=== PATIENT | female | born 1995 | race Caucasian/White ===

== ENCOUNTER 2021-01-30 07:29 | Day surgery (SDC) | payer BC, OTHER ==
[~2021-01-30] VITALS: Ht 162.6 cm; Wt 65.8 kg
[2021-01-30 08:07] VITALS: BP 107/75; PULSE 90; TEMP 98
[2021-01-30] MEDS ORDERED: ALDACTONE 100M100 MG PO (08:14)
[2021-01-30] MEDS ORDERED: SINGULAIR 110 MG/TAB PO (08:16)
[2021-01-30] MEDS ORDERED: FLOVENT 44MCG I13 GM IH (08:17)
[2021-01-30] MEDS ORDERED: EPIDUO FORTE 0.45 GM TP (08:18)
[2021-01-30] MEDS ORDERED: MAG (08:22)
[2021-01-30] MEDS ORDERED: CALCIUM (08:22)
[2021-01-30] MEDS ORDERED: VITAMIND (08:22)
[2021-01-30] MEDS ORDERED: MELATONIN5 M1 SL (08:24)
[2021-01-30] MEDS ORDERED: ONE-A-DAY ESSE1 EACH PO (08:24)
[2021-01-30] MEDS ORDERED: VITAMIN C (08:26)
[2021-01-30] MEDS ORDERED: PEPCID 20MG TAB20 MG PO (08:27)
[2021-01-30] MEDS ORDERED: ZYRTEC 10MG10 MG PO (08:28)
[2021-01-30] MEDS ORDERED: FLONASEALLERGY NS (08:33)
[2021-01-30] MEDS ORDERED: MIRENA52 MG IY (08:33)
[2021-01-30 09:45] VITALS: BP 92/60; PULSE 72; TEMP 97
--- NOTE | 2021-01-30 09:45 | NUR ---
Pt to GI bay 5 via cart from ENDO. Pt drowsy, but awake. Pt ambulates to recliner with stand by assistance. Warm blanket given. Apple juice, water and pudding given per pt request. Will continue to monitor. Call light within reach.
[2021-01-30 10:00] VITALS: BP 104/92; PULSE 66
--- NOTE | 2021-01-30 10:00 | NUR ---
Pt continues to rest. Tolerating food and fluids without difficulties. Call light within reach.
[2021-01-30 10:15] VITALS: BP 103/75; PULSE 66
--- NOTE | 2021-01-30 10:15 | NUR ---
Pt wanting to get dressed. IV site discontinued with all parts intact. Pt up to dress. Awaiting post consultation from physician.
--- NOTE | 2021-01-30 10:50 | NUR ---
Dr Leach into see pt and consult with her. Discharge instructions reviewed. pt voices understanding.
--- NOTE | 2021-01-30 11:05 | NUR ---
Pt escorted to private car via wheel chair. Pt accompanied home by her friend Joe.
== END 2021-01-30 11:05 | disposition home or self-care (01) ==
LOC: SDCO 07:29
DX: D12.5 Benign neoplasm of sigmoid colon (principal); D64.9 Anemia, unspecified; K64.8 Other hemorrhoids; K62.89 Other specified diseases of anus and rectum; K29.50 Unspecified chronic gastritis without bleeding; Z88.2 Allergy status to sulfonamides; J45.909 Unspecified asthma, uncomplicated; K21.9 Gastro-esophageal reflux disease without esophagitis; Z79.899 Other long term (current) drug therapy
CPT/HCPCS: J2704; J7120

== ENCOUNTER 2021-05-13 12:56 | Emergency (ER) | payer OTHER, BC ==
[~2021-05-13] VITALS: Ht 162.6 cm; Wt 65.9 kg
[~2021-05-13 12:56] MED LIST: ALDACTONE 100M100 MG PO; CALCIUM; EPIDUO FORTE 0.45 GM TP; FLONASEALLERGY NS; FLOVENT 44MCG I13 GM IH; MAG; MELATONIN5 M1 SL; MIRENA52 MG IY; ONE-A-DAY ESSE1 EACH PO; PEPCID 20MG TAB20 MG PO; SINGULAIR 110 MG/TAB PO; VITAMIN C; VITAMIND; ZYRTEC 10MG10 MG PO
[2021-05-13 15:31] VITALS: BP 108/73; PULSE 74; TEMP 97.8
== END 2021-05-13 15:31 | disposition home or self-care (01) ==
LOC: COL.ER 12:56
DX: F07.81 Postconcussional syndrome (principal)
CPT/HCPCS: J1200; J1885

== ENCOUNTER 2023-11-17 04:19 | Inpatient (IN) | payer BC ==
[2023-11-16 21:15] VITALS: BP 144/70; PULSE 77
[~2023-11-17] VITALS: Ht 167.6 cm; Wt 81.8 kg
[2023-11-17] VITALS (56 sets, daily range): BP systolic 101–199; BP diastolic 55–90; PULSE 61–111; TEMP 98–98.8
[2023-11-17] MEDS ORDERED: LR 1,000 ML IV PRN ×2 (05:00→20:00)
--- NOTE | 2023-11-17 05:00 | NUR ---
0425: Pt arrives via wheelchair, accompanied by spouse and staff. Shown to room and instructed to change into gown. 0430: Pt placed on monitors, current complaint of ctx that started yesterday around 1500, irregular in frequency, but became stronger and more frequent around 0100 today. Pt also reports have nausea and vomiting at times with her ctx. hx obtained as well. Pt denies any LOF, VB and reports good movement. 0440: SVE 2/90/-2 at this time, bag of gallardo intact. Pt tolerated exam fair.
[2023-11-17] MEDS ORDERED: Ondansetron 4 MG/2 ML VIAL IV ONE (06:00)
--- NOTE | 2023-11-17 09:15 | NUR ---
UNABLE TO TRACE ACCURATE CTX DUE TO MATERNAL POSITION AND HABITUS. THIS RN AT BEDSIDE ADJUSTING TOCO.
[2023-11-17] MEDS ORDERED: ROPivacaine PF 0.2% 200 ML IV ONE (09:17)
[2023-11-17] MEDS ORDERED: LR 1,000 ML IV SCH (09:30)
[2023-11-17] MEDS ORDERED: LR & Oxytocin 500 ML IV SCH ×3 (09:30→11:45)
--- NOTE | 2023-11-17 09:45 | NUR ---
UNABLE TO TRACE EFM AND TOCO DUE TO MATERNAL POSITION AND HABITUS DURING EPIDURAL PROCEDURE. THIS RN AT BEDSIDE ATTEMPTING TO TRACE, PT VS STABLE.
--- NOTE | 2023-11-17 09:58 | NUR ---
[address] MIXER OPERATOR AT PT BEDSIDE, PT SITTING ON SIDE OF BED. NELSY DISCUSSING AND EDUCATING PT ON EPIDURAL PLACEMENT AND PROCEDURE, SPOUSE SUPPORTIVE AT BEDSIDE. EFM CAT 1, PT VS STABLE. 0956 TEST DOSE ADMINISTERED PER N[address] ROAD MIXER OPERATOR, PT TOLERATED WELL. PT VS STABLE, PT REPOSITIONED COMFORTABLE WEDGE LEFT, SPOUSE SUPPORTIVE AT BEDSIDE.
[2023-11-17] MEDS ORDERED: Ondansetron 4 MG/2 ML VIAL IV PRN ×2 (10:00→20:00)
[2023-11-17] MEDS ORDERED: diphenhydrAMINE 25 MG CAP PO PRN (10:00)
[2023-11-17] MEDS ORDERED: ePHEDrine 50 MG/10 ML VIAL IV PRN (10:00)
[2023-11-17] MEDS ORDERED: Naloxone 0.4 MG/ML VIAL IV PRN ×2 (10:00→20:00)
[2023-11-17] MEDS ORDERED: diphenhydrAMINE 50 MG/ML 1 ML VIAL IV PRN (10:00)
--- NOTE | 2023-11-17 10:00 | NUR ---
0955 SVE PER JORGE LUIS 5-6/90/-2, PT TOLERATED WELL, VS STABLE 0958 FHR PROLONGED DECEL BEGINS, DECEL LASTS 5 MIN, NOTIFIED. PT POSITION CHANGED, EPHEDRINE DOSE 2ML/10MG ADMINISTERED PER NELSY LARSEN. 1003 FHR BASELINE RECOVERED 120'S, CTX UNABLE TO TRACE DUE TO MATERNAL POSITION, PT VS STABLE. THIS RN AT BEDSIDE ATTEMPTING TO TRACE CTX.
[2023-11-17] MEDS ORDERED: ePHEDrine 50 MG/ML VIAL ONE (10:02)
[2023-11-17 10:49] LABS: BASO % 0.2 % (0.0-2.0); EOS % 0.1 % (0.0-4.0); GRAN # 7.7 K/mm3 (1.4-6.5); GRAN % 86.7 % (42.2-75.2); HEMOGLOBIN 11.1 g/dl (12.5-16.0); LYMPH # 0.9 K/mm3 (1.2-3.4); LYMPH % 10.4 % (20.0-51.0); MEAN CELL VOLUME 84 fl (80.0-100.0); MEAN CORPUSCULAR HEMOGLOBIN 27 pg (27-31); MEAN CORPUSCULAR HGB CONC 32 g/dl (33.0-37.0); MEAN PLATELET VOLUME 9.8 fl (7.4-10.4); MONO # 0.2 K/mm3 (0.1-0.6); MONO % 2.1 % (1.7-9.3); PLATELET COUNT 264 K/mm3 (130-400); RED BLOOD COUNT 4.13 M/mm3 (4.10-5.30); REDCELL DISTRIBUTION WIDTH-CV 13.4 % (11.5-14.5)
[2023-11-17 10:52] LABS: HEMATOCRIT 34.5 % (37.0-47.0)
--- NOTE | 2023-11-17 12:30 | NUR ---
1222 FHR BEGINS EARLY DECEL, SVE /-2 PER THIS RN. PT POSITION CHANGED, THIS RN CALLS FOR ASSISTANCE FROM THUY EVANS. FLUID BOLUS BEGUN. 1230 PITOCIN STOPPED DUE TO PROLONGED EARLY DECEL, PT POSITIONED HANDS AND KNEES. NOTIFIED. 1236 FHR RETURNS WNL 120'S, CTX Q 2-5MIN 90-120SEC. PT VS STABLE, SPOUSE SUPPORTIVE AT BEDSIDE. PT REPOSITIONED LEFT LATERAL WITH PEANUT BALL.
--- NOTE | 2023-11-17 14:55 | NUR ---
1446 FHR PROLONGED LATE DECEL BEGAN, THIS RN AT BEDSIDE CHANGING PT POSITION, FLUID BOLUS BEGUN. THIS RN ASKS FOR ASSISTANCE AND NOTIFIES 1450 PITOCIN STOPPED, PT REPOSITIONED UNTIL FHR RECOVERS ON LEFT LATERAL SIDE. PT VS STABLE 1454 FHR RECOVERED BASELINE 130'S WITH SOME RECURRENT LATES BUT NOT PROLONGED. 1512 FHR FULLY RECOVERED WITH NO LATES, NOTIFIED. PT VS STABLE, SPOUSE SUPPORTIVE AT BEDSIDE. FHR 130'S, GOOD ACCELS, NO DECELS, CTX 2-3MIN 70-90SEC, MODERATE VARIABILITY.
--- NOTE | 2023-11-17 16:30 | NUR ---
1625 FHR BEGIN PROLONGED LATE DECELERATION, THIS RN AT BEDSIDE CHANGING PT POSITION, FLUID BOLUS BEGUN, PITOCIN STOPPED, NOTIFIED. 1630 FHR RECOVERED 130'S. PT VS STABLE, CTX 2-5MIN 60-120SEC, NO ACCELS, INTERMITTENT VARIABLES. SPOUSE SUPPORTIVE AT BEDSIDE. AT BEDSIDE DISCUSSING PLAN OF CARE WITH PT AND SPOUSE IF FHR CONTINUES TO SHOW PROLONGED DECELERATIONS
--- NOTE | 2023-11-17 17:00 | NUR ---
1650 FHR BEGINS PROLONGED EARLY DECELERATION, PT SVE PER -/0. PT REPOSITIONED, PITOCIN STOPPED. THIS RN NOTIFIES CHARGE NURSE BRADFORD FOR ASSISTANCE AND AT BEDSIDE HELPING. 1702 FHR RECOVERED BASELINE 130'S, PT WEDGE RIGHT WITH RT LEG IN STIRRUP. PT DISCUSSED WITH RECHECKING FOR CERVICAL CHANGE IN 1 HOUR TO DECIDE PLAN OF CARE WITH DELIVERY.
--- NOTE | 2023-11-17 18:22 | NUR ---
This RN into room for bedside report. Pt pushing. Pitocin to 6mu to augment pushing. 183 FHT's to 90's with pushing. Pushing stopped. 1831 to L side with no change in FHT's x 1 min, to R side. pitocin to 4 mu. gradual return to base line 140's. time from onset to return to baseline 3.5 minutes. 1838 Continues RL, peanut ball placed. 1840 FHT's with late onset variable to 90's
--- NOTE | 2023-11-17 19:00 | NUR ---
Pushing attempted in RL. FHT's to 80's , spont back to baseline. Pushing attempt #2 in RL, FHT's to 60's after pushing stopped, prior to end of ctx. 190 FHT's with loss of tracing, trending upwords. 1904 to WL FHT's briefly tracing and audible in 60's. Attempt FSE , unsuccessful r/t large amount of caput. 1907 To LL. FHT's to 150's, then back to 70's with pushing, returns to baseline after 70 seconds. 1919 FHT's continue with late decelerations to 70's-90's with with pushing
--- NOTE | 2023-11-17 19:25 | NUR ---
Pushing stopped. FHT's with late decelrations. 1925 Dr Osborne notified. Pitocin gtt turned off. 193 Dr osborne into room SVE with no descent noted. Dr Osborne discusses findings and need for C/S. Questions invited and answered.
[2023-11-17] MEDS ORDERED: oxyCODONE 5 MG TAB PO PRN (20:00)
[2023-11-17] MEDS ORDERED: Measles/Mumps/Rubella Virus Vaccine Live w Diluent 0.5 ML VIAL SQ SCH (20:00)
[2023-11-17] MEDS ORDERED: Loratadine 10 MG TAB PO PRN (20:00)
[2023-11-17] MEDS ORDERED: Acetaminophen 500 MG TAB PO PRN (20:00)
[2023-11-17] MEDS ORDERED: Magnes Hydrox (MOM) 80 MG/ML 30 ML CUP PO PRN (20:00)
[2023-11-17] MEDS ORDERED: dexAMETHasone 10 MG/ML VIAL ONE (20:37)
[2023-11-17] MEDS ORDERED: Ketorolac 30 MG/ML VIAL ONE (20:37)
[2023-11-17] MEDS ORDERED: NS 10 ML IV ONE (20:37)
[2023-11-17] MEDS ORDERED: Lidocaine PF 2% (20 MG/ML) 5 ML VIAL ONE ×2 (20:37→20:43)
[2023-11-17] MEDS ORDERED: Ondansetron 4 MG/2 ML VIAL ONE (20:37)
[2023-11-17] MEDS ORDERED: traZODone 50 MG TAB PO PRN (21:00)
[2023-11-17] MEDS ORDERED: Chloroprocaine PF 3% (30 MG/ML) 20 ML VIAL ONE (21:23)
[2023-11-18] MEDS ORDERED: Azithromycin 500 MG in NS 250 ML IV ONE
[2023-11-18] MEDS ORDERED: Tranexamic Acid 1,000 MG in NS 100 ML IV ONE
[2023-11-18] MEDS ORDERED: Ibuprofen 800 MG TAB PO SCH (01:58)
[2023-11-18 05:15] VITALS: BP 98/60; PULSE 50; TEMP 98.2
[2023-11-18 07:33] VITALS: BP 111/58; PULSE 67; TEMP 98.4
[2023-11-18] MEDS ORDERED: Sennosides/Docusate 8.6-50 MG TAB PO SCH (08:00)
--- NOTE | 2023-11-18 09:16 | NUR ---
Initial visit; Patient thanked Director Clinical Information Services for looking in on her and her son and offering congratulations and God's blessings for a healthy baby. Director Clinical Information Services thanked mom for choosing our hospital and commented on what a wonderful name she and her chose for their son. Director Clinical Information Services wished them well.
[2023-11-18 16:19] VITALS: BP 106/65; PULSE 78; TEMP 98.1
[2023-11-18 20:05] VITALS: BP 107/64; PULSE 76; TEMP 98.9
[2023-11-19 07:00] VITALS: BP 111/69; PULSE 69; TEMP 98.2
[2023-11-19] MEDS ORDERED: Influenza Virus Vaccine, Quad '23-24 (6 MOS+) 0.5 ML SYRINGE IM SCH (09:00)
--- NOTE | 2023-11-19 11:14 | NUR ---
Assumed care of patient and baby. Rests in bed, alert. Denies any discomfort or needs at this time.
== END 2023-11-19 16:20 | disposition home or self-care (01) | DRG 788 ==
LOC: LDRO 04:19 → LDR 04:53 → LDRO 09:35 → OB 09:35 → LDR 09:35 → OB 21:30
PROVIDERS: ADMIT Obstetrics & Gynecology
PROC: 10D00Z1 Extraction of Products of Conception, Low, Open Approach (ICD-10-PCS; principal; 2023-11-17)
DX: O77.0 Labor and delivery complicated by meconium in amniotic fluid (principal); Z3A.39 39 weeks gestation of pregnancy; Z37.0 Single live birth; J45.909 Unspecified asthma, uncomplicated; O99.52 Diseases of the respiratory system complicating childbirth; K21.9 Gastro-esophageal reflux disease without esophagitis; K58.9 Irritable bowel syndrome, unspecified; O99.62 Diseases of the digestive system complicating childbirth; O76 Abnormality in fetal heart rate and rhythm complicating labor and delivery; Z88.8 Allergy status to other drugs, medicaments and biological substances
CPT/HCPCS: J0456; J0665; J0690; J1100; J1885; J2401; J2405; J2590; J2795; J7050; J7120

== ENCOUNTER → 2023-11-29 | Outpatient (CLI) | payer BC ==
--- NOTE | 2023-11-29 15:40 | NUR ---
Pt, Sarah Hardy, presents to walk-in clinic with 12 day old baby boy, Giovanni Hardy, for a breast feeding evaluation. Pt states she would like to wean Giovanni from the nipple shield. Giovanni was born on [birth year] and weighed 7# 13.9oz (3570 gms). Pt states Giovanni weighed 7# 5oz on 11/21/[address] Nichols's office. She also states Giovanni has not had a bowel movement for 4 days. She reports Giovanni is fed q 2-3 hours. Occassionally he gets a bottle for convenience and he gets 2oz. She also states she pumps as needed or when Giovanni does not go to the breast and that she collects 2-3oz. Today Giovanni weighs 7# 9.2oz (3436 gms). We attempt to latch without the nipple shield. Pt's breast and nipple anatomy is normal but Giovanni arches, cries and does not latch. After a handful of attempt, the nipple shield is placed and Giovanni latches. To keep him engaged gtts of formula over the nipple shield helps. Eventually we get him latched to the left side in the football hold without the shield. On the right side we could not get him to latch without the shield despite several attempts and gtts of formula to encourage his interest. After , being on and off the breast for close to an hour, Giovanni had a gain of 1.8oz (52 gms). Giovanni continues to act hungry and is provided ~1oz formula by bottle. HANS suspects pt has low milk supply, she states her milk did not increase until day 4-5 and over a full week before it looked like typical breast milk. She denies any medical hx that may impact milk production. HANS does oral exam of Giovanni's mouth after feeding. he does have good tongue extension and does not appear to have a tongue tie, but he has an elevated anterior palate and possible upper lip frenulum that may restrict a good latch. Impression: low milk transfer, low milk supply, high anterior palate. POC: 3-step feeding plan, limit time at breast to 10 min per side. Supplement 1.5-2oz EBM or formula each feeding and follow with 15 minutes of pumping. F/U; One week at walk-in clinic, as scheduled with physicians. Questions invited and answered.
== END ==
LOC: LAC 12:09
DX: Z39.1 Encounter for care and examination of lactating mother (principal); Z71.89 Other specified counseling